=== PATIENT | male | born 1940 | race Caucasian/White ===

== ENCOUNTER 2019-11-12 16:40 | Inpatient (IN) | payer MEDICARE ==
[~2019-11-12] VITALS: Ht 180.3 cm; Wt 84.3 kg
[2019-11-12] VITALS: BP 136/75
--- NOTE | ~2019-11-12 | PROC ---
[address] [address] PROCEDURE REPORT Name: HARRIS DUQUE Room: [address] ADM IN M.R.#: [id number] Admission: 11/12/19 Attend Phys: Elizabeth us los [place] Discharge: Date of : 38 Report #: [id number] THIS REPORT FOR: //name// cc: Ruel Mckenna MD, Justin MD ~ THIS REPORT FOR: //name// For GI report, please see the Provation report in Perceptive 7 content. By: [id number] Records Staff THEO /ANA LUISA
[2019-11-12 16:46] VITALS: BP 125/57
[2019-11-12] MEDS ORDERED: MELOXICAM15 MG PO (16:57)
[2019-11-12] MEDS ORDERED: FLEXERIL PO (16:58)
[2019-11-12] MEDS ORDERED: TRAMADOL 50 MG50 MG PO (16:58)
[2019-11-12] MEDS ORDERED: PROSCAR 5MG TABL5 MG PO (16:59)
[2019-11-12 17:19] LABS: MCH 32.6 pg (26.0-34.0); MCHC 36.8 g/dL (28.0-37.0); MCV 88.6 fL (80.0-100.0); NUCLEATED RBCS 4 /100WBC; RBC 2.12 mil/uL (4.50-6.00); RDW-CV 14.5 % (10.5-14.5); WBC 8.3 thou/uL (4.0-11.0)
[2019-11-12 17:29] LABS: APTT 25.2 Seconds (25.0-31.3); CALCIUM 8.3 mg/dL (8.5-10.1); CREATININE 1.4 mg/dL (0.6-1.3); INR 1.1; POTASSIUM 4.5 mmol/L (3.5-5.1); PROTIME 11.3 Seconds (9.20-11.50)
[2019-11-12 17:32] LABS: HEMATOCRIT 18.8 % (42.0-52.0); HEMOGLOBIN 6.9 gm/dL (14.0-18.0)
[2019-11-12 17:40] LABS: ALBUMIN 3.3 g/dL (3.4-5.0); TOTAL BILIRUBIN 1.7 mg/dL (<0.1-1.0); TOTAL PROTEIN 6.9 g/dL (6.4-8.2)
[2019-11-12 19:12] LABS: ABSOLUTE EOSINOPHILS 0.1 thou/uL (0.0-0.7); ABSOLUTE LYMPHOCYTES 2.3 thou/uL (0.8-5.3); ABSOLUTE MONOCYTES 0.4 thou/uL (0.0-1.2); PLATELET COUNT* 45 thou/uL (150-400); PLATELET ESTIMATE DECREASED
[2019-11-12 19:13] LABS: ABSOLUTE NEUTROPHILS 5.5 thou/uL (1.6-8.1); ANISOCYTOSIS 2+; METAMYELOCYTES 3 %; MYELOCYTES 3 %
[2019-11-12 21:21] VITALS: BP 136/65
[2019-11-12 21:40] VITALS: BP 108/52
[2019-11-12 21:43] LABS: MAGNESIUM 2.4 mg/dL (1.8-2.4)
[2019-11-12 22:51] VITALS: BP 105/50; BP 108/50; BP 108/52; BP 112/58
[2019-11-13 03:00] VITALS: BP 112/58
[2019-11-13 04:12] LABS: HEMOGLOBIN 7.9 gm/dL (14.0-18.0); MCH 32.7 pg (26.0-34.0); WBC 6.5 thou/uL (4.0-11.0)
[2019-11-13 04:14] LABS: HEMATOCRIT 21.4 % (42.0-52.0); MCHC 36.9 g/dL (28.0-37.0); MCV 88.5 fL (80.0-100.0); MPV 7.7 fl. (7.2-11.1); RBC 2.42 mil/uL (4.50-6.00); RDW-CV 14.6 % (10.5-14.5)
[2019-11-13 04:34] LABS: ALBUMIN 2.7 g/dL (3.4-5.0); CALCIUM 7.8 mg/dL (8.5-10.1); POTASSIUM 4.1 mmol/L (3.5-5.1); TOTAL BILIRUBIN 1.6 mg/dL (<0.1-1.0)
[2019-11-13 08:00] VITALS: BP 117/60
--- NOTE | 2019-11-13 09:15 | NUR ---
PT[place] AT [place]. SHE WAS ABLE TO TALK WITH DR.DE JOSE MANUEL ALLEN. HE NORMALLY IS INDEPENDENT. USES A CANE AT TIMES. WAS TILLING THEIR LG.GARDEN SEVERAL WEEKS AGO. BEGAN HAVING N/V AND ABDOMINAL PAIN. UNABLE TO FIND CAUSE. SHE REQUESTED HE BE ADMITTED TO [facility] THEY HAVE BEEN HERE BEFORE AND IT IS MUCH BETTER THAN THEIR [facility] ([facility] PT.CONFUSED AT PRESENT. CM WILL FOLLOW FOR DISCHARGE PLANNING.
[2019-11-13 11:30] VITALS: BP 125/50
--- NOTE | 2019-11-13 13:22 | EKG ---
[place] [address] ELECTROCARDIOGRAM REPORT Name: HARRIS DUQUE Room: [address] IN .R.#: [id number] Admission: 11/12/19 Attend Phys: Elizabeth castro Sa Discharge: Date of : 38 Date of Service: 11/12/19 1718 Report #: [id number] THIS REPORT FOR: //name// [facility] ED Test Date: 2019-11-12 Test Time: 17:18:46 Pat Name: HARRIS DUQUE Department: Room: [facility] Gender: M Fabrication Supervisor: MAHESH : 1940 Requested By: Baljinder Montes Order Number: [id number] MD: Kodak Becerra Measurements Intervals [place] Rate: 91 P: 61 LA: 146 QRS: 56 QRSD: 99 T: 57 QT: 358 QTc: 441 Interpretive Statements Sinus rhythm RSR' in V1 or V2, right VCD No previous ECG available for comparison Electronically Signed On 11-13-2019 13:21:46 CDT by Kodak Becerra [email or web address] <ELECTRONICALLY SIGNED> By: Kodak Becerra MD, [facility] 11/13/19 1321 1718 1718 Kodak Becerra MD, [facility] /EPI
--- NOTE | 2019-11-13 19:30 | NUR ---
PT. AGITATED AND RESTLESS AFTER ATIVAN ADMINISTERED THIS AM. EVENTUALLY, BECAME RESTLESS AND SLEPT FOR SEVERAL HOURS THIS AFTERNOON. UNABLE TO GET MRI DONE ON TWO ATTEMPTS PT. BECAME INCREASINGLY RESTLESS, ACCORDING TO CRUSHER MACHINE OPERATOR. PT. IN BED, RESTLESS, WITH AT BEDSIDE, AT SHIFT CHANGE. ATIVAN 1 MG ADMINISTERED AT 1830, UNABLE TO CHART DUE TO [email or web address] TECH ISSUE. WILL PASS ON TO NS NURSE. PT ON IVF CONTINUOUS, NO COMPLICATIONS. CALL LIGHT AND PERSONAL BELONGIGNS PLACED WITHIN REACH.
[2019-11-13 20:00] VITALS: BP 143/68
[2019-11-13] MEDS ORDERED: OLMESARTAN MEDO20 MG PO (22:42)
[2019-11-14] VITALS: BP 133/75
--- NOTE | 2019-11-14 00:45 | NUR ---
PT ALERT ORIENTED. UP AD DOMONIQUE IN ROOM. NS AT 100MLS/HR STARTED FOR POST HEART CATH. TELEMETRY SHOWS SB RARE PAC. R RADIAL DRSG D/I. DENIES CP OR DISCOMFORT. WCTM
[2019-11-14 02:06] LABS: HEPATITIS B SURFACE AG Negative (Negative)
[2019-11-14 04:00] VITALS: BP 119/50; BP 141/62
[2019-11-14 05:54] LABS: ABSOLUTE LYMPHOCYTES 1.4 thou/uL (0.8-5.3); ABSOLUTE MONOCYTES 0.5 thou/uL (0.0-1.2); ABSOLUTE NEUTROPHILS 4.7 thou/uL (1.6-8.1); BASOPHILS 0.3 %; EOSINOPHILS 0.5 %; HEMATOCRIT 20.3 % (42.0-52.0); HEMOGLOBIN 7.5 gm/dL (14.0-18.0); MCH 32.8 pg (26.0-34.0); MCHC 36.7 g/dL (28.0-37.0); MCV 89.5 fL (80.0-100.0); MONOCYTES 7.1 %; MPV 7.5 fl. (7.2-11.1); NUCLEATED RBCS 3 /100WBC; POLYS 71.1 %; RBC 2.27 mil/uL (4.50-6.00); RDW-CV 14.4 % (10.5-14.5); WBC 6.6 thou/uL (4.0-11.0)
[2019-11-14 06:04] LABS: INR 1.1; PLATELET COUNT* 35 thou/uL (150-400); PROTIME 11.4 Seconds (9.20-11.50)
[2019-11-14 06:12] LABS: ALBUMIN 2.7 g/dL (3.4-5.0); CALCIUM 7.9 mg/dL (8.5-10.1); CREATININE 0.7 mg/dL (0.6-1.3); POTASSIUM 3.5 mmol/L (3.5-5.1); TOTAL BILIRUBIN 1.5 mg/dL (<0.1-1.0); TOTAL PROTEIN 5.9 g/dL (6.4-8.2)
[2019-11-14 08:00] VITALS: BP 138/71
[2019-11-14 12:48] LABS: % SATURATION 68 % (20-39); IRON 141 ug/dL (50-175)
[2019-11-14 15:58] LABS: URINE BILIRUBIN NEGATIVE (Negative); URINE BLOOD NEGATIVE (Negative); URINE CLARITY CLEAR; URINE COLOR DARK YELLOW; URINE GLUCOSE-RANDOM NEGATIVE (Negative); URINE KETONES 1+ (Negative); URINE LEUKOCYTES-REFLEX NEGATIVE (Negative); URINE NITRITE-REFLEX NEGATIVE (Negative); URINE PROTEIN TRACE (Negative); URINE SPECIFIC GRAVITY >= 1.030 (1.005-1.030)
[2019-11-14 16:30] VITALS: BP 139/56
--- NOTE | 2019-11-14 18:34 | NUR ---
PT. VSS, INCREASINGLY ALERT THROUGHOUT THE DAY, ORIENTED TO NAME, DENIES PAIN, IVF INFUSING CONTINUOUS WITHOUT COMPLICATIONS. PT WITH AT BEDSIDE THROUGHOUT SHIFT, ASSISTING WITH CARE. PT. ORIENTED TO CALL LIGHT. PT. IN BED, WITH AT BEDSIDE, IN NO APPARENT DISTRESS, AT THIS TIME.
[2019-11-14 20:00] VITALS: BP 144/69
[2019-11-15] VITALS (7 sets, daily range): BP systolic 131–151; BP diastolic 59–75
--- NOTE | 2019-11-15 04:23 | NUR ---
No acute event this shift. Pt complains of headache, meds given with relief. Pt Aox2- confused, easy to redirect/reorientation done. IVF infusing as ordered. Hourly rounding observed, call light within reach, will continue to monitor.
[2019-11-15 10:42] LABS: RBC 2.15 mil/uL (4.50-6.00)
[2019-11-15 10:45] LABS: MCH 32.9 pg (26.0-34.0); MCHC 36.6 g/dL (28.0-37.0); MPV 8.2 fl. (7.2-11.1); RDW-CV 14.5 % (10.5-14.5); WBC 7.7 thou/uL (4.0-11.0)
[2019-11-15 10:52] LABS: ALBUMIN 2.4 g/dL (3.4-5.0); CALCIUM 7.7 mg/dL (8.5-10.1); CREATININE 0.7 mg/dL (0.6-1.3); MAGNESIUM 1.9 mg/dL (1.8-2.4); POTASSIUM 3.5 mmol/L (3.5-5.1); TOTAL BILIRUBIN 1.3 mg/dL (<0.1-1.0)
[2019-11-15 11:02] LABS: HEMATOCRIT 19.3 % (42.0-52.0)
[2019-11-15 11:03] LABS: HEMOGLOBIN 7.1 gm/dL (14.0-18.0); PLATELET COUNT* 28 thou/uL (150-400)
[2019-11-15 13:59] LABS: ABSOLUTE LYMPHOCYTES 2.4 thou/uL (0.8-5.3); ABSOLUTE MONOCYTES 0.2 thou/uL (0.0-1.2); ABSOLUTE NEUTROPHILS 5.2 thou/uL (1.6-8.1); METAMYELOCYTES 4 %
[2019-11-15 14:00] LABS: PLATELET ESTIMATE DECREASED
[2019-11-15 16:02] LABS: DIRECT BILIRUBIN 0.5 mg/dL (<0.1-0.3); TOTAL BILIRUBIN 1.3 mg/dL (<0.1-1.0)
--- NOTE | 2019-11-15 18:56 | NUR ---
pt. vss, aox1-2, appears confused, denies pain. unit administered, tolerated without complications. spouse at bedside most of shift, assisted with care. pt. turned to side frequently. call light and personal belongings placed within reach. pt. in bed, watching tv, spouse at bedside, in no apparent distress at time of shift change.
[2019-11-15 20:37] LABS: HEMATOCRIT 22.8 % (42.0-52.0); HEMOGLOBIN 8.5 gm/dL (14.0-18.0)
[2019-11-16 04:00] VITALS: BP 137/76
--- NOTE | 2019-11-16 07:42 | NUR ---
PT MORE ALERT AND MINIMAL ANXIETY WITH AT BEDSIDE OBSERVED BY THIS RN. FENTANYL GIVEN PRN FOR PAIN. 11 BEAT RUN OF V-TACH- PRINTED AND PUT IN CHART. RE-ORDERED TYPE AND SCREEN FOR EXPIRATION. CALL LIGHT IN REACH. HOURLY ROUNDING FOR SAFETY.
[2019-11-16 08:00] VITALS: BP 130/60
--- NOTE | 2019-11-16 08:10 | NUR ---
ASSUMED CARE OF PATIENT THIS MORNING FROM NIGHT NURSE. PT IS VERY WEAK. HE WAS EDUCATED ON POC, HER MRI TODAY AND FALL SAFETY. BED IS INT HE LOWEST POSITION AND THE CALL LIGHT IS REACH. BED ALARM IS ON WILL CONTINUE TO MONITOR.
[2019-11-16 08:23] LABS: HEMOGLOBIN 8.1 gm/dL (14.0-18.0); RBC 2.52 mil/uL (4.50-6.00); WBC 8.2 thou/uL (4.0-11.0)
[2019-11-16 08:25] LABS: MCH 32.2 pg (26.0-34.0); MCV 87.1 fL (80.0-100.0); MPV 9.4 fl. (7.2-11.1); RDW-CV 14.3 % (10.5-14.5)
[2019-11-16 08:47] LABS: ALBUMIN 2.3 g/dL (3.4-5.0); CALCIUM 8.1 mg/dL (8.5-10.1); CREATININE 0.6 mg/dL (0.6-1.3); MAGNESIUM 1.9 mg/dL (1.8-2.4); PHOSPHORUS* 3.4 mg/dL (2.5-4.9); POTASSIUM 3.5 mmol/L (3.5-5.1)
[2019-11-16 10:00] LABS: DIRECT BILIRUBIN 0.5 mg/dL (<0.1-0.3); TOTAL BILIRUBIN 1.4 mg/dL (<0.1-1.0)
[2019-11-16 11:04] LABS: HEMATOCRIT 21.8 % (42.0-52.0); HEMOGLOBIN 8.1 gm/dL (14.0-18.0)
[2019-11-16 11:06] LABS: MCH 32.2 pg (26.0-34.0); MCV 87.1 fL (80.0-100.0); MPV 7.7 fl. (7.2-11.1); RBC 2.5 mil/uL (4.50-6.00); RDW-CV 14.3 % (10.5-14.5); WBC 6.7 thou/uL (4.0-11.0)
[2019-11-16 11:30] LABS: DIRECT BILIRUBIN 0.4 mg/dL (<0.1-0.3); TOTAL BILIRUBIN 1.3 mg/dL (<0.1-1.0)
[2019-11-16 11:51] VITALS: BP 127/66
[2019-11-16 14:58] LABS: HEMATOCRIT 23.5 % (42.0-52.0); HEMOGLOBIN 8.5 gm/dL (14.0-18.0); MCH 32.4 pg (26.0-34.0); MCHC 36.2 g/dL (28.0-37.0); MCV 89.5 fL (80.0-100.0); MPV 7.3 fl. (7.2-11.1); NUCLEATED RBCS 2 /100WBC; RBC 2.62 mil/uL (4.50-6.00); RDW-CV 14.4 % (10.5-14.5); WBC 7.9 thou/uL (4.0-11.0)
[2019-11-16 15:10] LABS: PLATELET COUNT* 18 thou/uL (150-400)
[2019-11-16 15:33] LABS: ABSOLUTE EOSINOPHILS 0.1 thou/uL (0.0-0.7); ABSOLUTE LYMPHOCYTES 1.7 thou/uL (0.8-5.3); ABSOLUTE MONOCYTES 0.2 thou/uL (0.0-1.2)
[2019-11-16 15:34] LABS: PLATELET ESTIMATE DECREASED; POLYCHROMASIA 1+; SCHISTOCYTES Occasional
[2019-11-16 15:35] LABS: TEARDROPS 1+
--- NOTE | 2019-11-16 16:21 | NUR ---
SW called pt to discuss dc planning. Pending therapy evaluations and recommendations and pt also said possibly other tests. Therapy just ordered today. SW discussed options for SNF if needed and pt to call SW back with preferences in preparation for when pt is ready to dc. SW to continue to follow to assist with safe dc planning.
[2019-11-16 16:41] VITALS: BP 146/74
--- NOTE | 2019-11-16 19:19 | CON ---
[address] [address] CONSULTATION Name: HARRIS DUQUE Room: [address] IN M.R.#: [id number] Admission: 11/12/19 Attend Phys: Elizabeth Saini Discharge: Date of : 38 Report #: [id number] THIS REPORT FOR: //name// cc: Ruel Mckenna MD, Justin MD ~ THIS REPORT FOR: //name// CC: Elizabeth Carter DICTATED BY: Cecelia Rodriguez [facility] DATE OF SERVICE: 11/13/2019 Please note at the time of this dictation, the patient was seen and physically examined by myself. REASON FOR CONSULTATION: Acute anemia, possible GI bleed, nausea and vomiting. HISTORY OF PRESENT ILLNESS: This is an 79-year-old man who has a longstanding history of alcohol abuse for 50-plus years up until 5 weeks ago, he was drinking 5-8 beers daily regularly. All of the history was obtained from his for the patient had been sedated for imaging. informs me that about 6 weeks ago, he threw his back out while he was tilling in the yard. He was given Mobic at that time and steroids and some Flexeril. He was doing physical therapy. During this time approximately a couple of weeks ago with all of this, he became very constipated. He tried some magnesium citrate to help with that, which did not work for another 8-10 hours then he started having profound diarrhea as well as he had projectile vomitus that was all bile in nature per his . She did not see any bright red blood or any coffee-ground emesis with that. He has continued to have a little bit of nausea and he then proceeded after his bowel movement to that he noticed some bright red blood on his tissue that is when he stopped taking the Mobic at that time. The patient was getting worse and then was transferred from [facility] for further evaluation due to his acute anemia at this time. The patient has never had EGD or colonoscopy done before. states normally his bowels are regular except for here recently. He had severe constipation about 2 weeks ago. Did the mag citrate along with some other laxatives, started going and then he has been on MiraLax daily, which has helped him go every day. He has not had any MiraLax the last 2 days, so therefore, he has not really had anything. It is noted that approximately 2 weeks ago, his hemoglobin was 14 per his PCP and he is down to 6.9 on admission. ALLERGIES: [place] [address] CONSULTATION Name: HARRIS DUQUE Room: [address] IN M.R.#: [id number] Admission: 11/12/19 Attend Phys: Elizabeth Saini Discharge: Date of : 38 Report #: [id number] MEDICATIONS FROM HOME: Mobic up until recently, Ultram, Flexeril and Proscar. PAST MEDICAL HISTORY: Hypertension and recently with his back issue. PAST SURGICAL HISTORY: Appendectomy and a left knee surgery. FAMILY HISTORY: Mother, pancreatic cancer. Sister, ovarian cancer. SOCIAL HISTORY: He is . Alcohol use daily, 5-8 beers up until 5 weeks ago and is a nonsmoker and denies any recreational drug use. REVIEW OF SYSTEMS: Twelve-point review of systems is essentially negative except what is mentioned in the HPI. PHYSICAL EXAMINATION: VITAL SIGNS: Temperature 37.1, pulse 87, respirations 17, blood pressure 125/50. HEART: Regular rate and rhythm. LUNGS: Clear. ABDOMEN: Very protuberant with a midline incision noted from the umbilicus down, but no tenderness noted. LABORATORY DATA: Hemoglobin on admission was 6.9, he got a unit of blood, he is up to 7.9; white count is 6.5 with platelets of 41,000. BUN is 26, creatinine is 1 with a GFR of 72. Total bilirubin is 1.7, alkaline phosphatase is 741, ALT is 75, AST is 104. Ultrasound showed a likely 1.2 cm hemangioma type mass in the liver. Also, sludge and debris were noted as well, but the gallbladder is normal size and thickness. Sludge and debris were noted within the gallbladder. The common bile duct was 5.2 mm. Unable to see the pancreas at this time. CT scan done on admission, confirming that he has got a cyst in the right hepatic lobe. Gallbladder, spleen, pancreas and adrenals are all normal. He does have a low-attenuating lesion on the right renal pole. It is noted a 6 cm segment of circumferential rectal wall thickening that is noted. IMPRESSION: 1. Nausea and vomiting. 2. Abdominal pain. 3. Rectal bleeding. 4. Abnormal CT. 5. Acute anemia. 6. Thrombocytopenia. 7. Elevated liver function tests. 8. Nonsteroidal anti-inflammatory drug use recently. 9. Hyponatremia. 10. Family history of pancreatic and ovarian cancer in mother and sister. 11. Alcohol abuse up until 5 weeks ago 5-8 beers daily for the last 50 [place] [address] CONSULTATION Name: HARRIS DUQUE Room: [address] IN [facility]#: [id number] Admission: 11/12/19 Attend Phys: Elizabeth us los [place] Discharge: Date of : 38 Report #: [id number] PLAN: 1. EGD, possible ERCP. 2. Alkaline phosphatase. 3. MRI is still pending. 4. Further recommendations to be made once the procedure or procedures have been performed. Thank you for allowing us to participate in this patient's care. Please do not hesitate to call with any questions in regard to this consult ADDENDUM Likely the patient will need a colonoscopy due to his abnormal rectal wall thickening while he is here in the hospital as well. <ELECTRONICALLY SIGNED> By: Nick Nye DO 11/16/19 1919 1252 1325Nick Nye DO /nt
[2019-11-16 20:00] VITALS: BP 109/71
[2019-11-17] VITALS: BP 141/73
[2019-11-17 04:51] LABS: HEMATOCRIT 22.2 % (42.0-52.0); HEMOGLOBIN 8.3 gm/dL (14.0-18.0); MCH 32.6 pg (26.0-34.0); MCHC 37.4 g/dL (28.0-37.0); MCV 87.3 fL (80.0-100.0); MPV 10.9 fl. (7.2-11.1); RBC 2.55 mil/uL (4.50-6.00); RDW-CV 14.3 % (10.5-14.5); WBC 9.6 thou/uL (4.0-11.0)
[2019-11-17 05:26] LABS: ALBUMIN 2.4 g/dL (3.4-5.0); CALCIUM 8.3 mg/dL (8.5-10.1); CREATININE 0.8 mg/dL (0.6-1.3); MAGNESIUM 2.2 mg/dL (1.8-2.4); POTASSIUM 3.7 mmol/L (3.5-5.1); TOTAL BILIRUBIN 1.1 mg/dL (<0.1-1.0); TOTAL PROTEIN 5.8 g/dL (6.4-8.2)
--- NOTE | 2019-11-17 06:51 | NUR ---
PT ORIENTED TO SELF AND . PT RESTLESS OFF AND ON. PAIN MEDICATION GIVEN PRN. @ BEDSIDE. PEDIATRIC ONCOLOGIST IM AND HEMO/OC PAGED FOR PLATELET RESULTS. PT'S STATED SHE WANTED TO TAKE HER HOME AND "NOT PUT HIM IN A FACILITY" AND ALSO REPORTED HER "INSURANCE WILL COVER HOME HEALTH." ENCOURAGED HER TO SPEAK WITH SOCIAL WORK AND DOCTOR.
[2019-11-17 08:00] VITALS: BP 148/64
--- NOTE | 2019-11-17 08:00 | NUR ---
ASSUMED CARE OF PATIENT THIS MORNING FROM NIGHT NURSE. PT IS DOING WELL, WITH MILD CO OF PAIN WELL CONTROLLED WITH PAIN MEDICATIONS. HE AND HIS WERE EDUCATED ON POC AND FALL SAFETY. BED IN LOWEST POSITION AND CALL LIGHT IN REACH, BED ALARM IS ON. WILL CONTINUE TO MONITOR.
[2019-11-17 10:52] VITALS: BP 130/80; BP 138/76; BP 144/80; BP 152/83
--- NOTE | 2019-11-17 11:33 | NUR ---
SW continuing to follow to assist with safe dc planning. Pt not ready yet and might need ICU. Pt called SW back and explained that they will not agree to SNF and would have ample support to assist at home and they would need DME ordered if more DME recommended at dc. Pt hopeful for OP PT if possible but was open to HH if needed.
[2019-11-17 12:00] VITALS: BP 151/82
[2019-11-17 15:55] VITALS: BP 151/82
[2019-11-17 20:00] VITALS: BP 111/71
[2019-11-17 22:33] LABS: HEMATOCRIT 21.4 % (42.0-52.0); HEMOGLOBIN 7.8 gm/dL (14.0-18.0); MCH 32.1 pg (26.0-34.0); MCHC 36.5 g/dL (28.0-37.0); MCV 87.8 fL (80.0-100.0); MPV 7.2 fl. (7.2-11.1); RBC 2.44 mil/uL (4.50-6.00); RDW-CV 14.4 % (10.5-14.5); WBC 11.6 thou/uL (4.0-11.0)
[2019-11-18] VITALS: BP 157/83; BP 167/80
[2019-11-18 07:38] LABS: ABSOLUTE BASOPHILS 0.1 thou/uL (0.0-0.2); ABSOLUTE LYMPHOCYTES 1.8 thou/uL (0.8-5.3); ABSOLUTE MONOCYTES 0.7 thou/uL (0.0-1.2); ABSOLUTE NEUTROPHILS 7.1 thou/uL (1.6-8.1); BASOPHILS 0.6 %; HEMATOCRIT 20.2 % (42.0-52.0); HEMOGLOBIN 7.5 gm/dL (14.0-18.0); LYMPHOCYTES 18.4 %; MCH 32.4 pg (26.0-34.0); MCV 87.6 fL (80.0-100.0); MONOCYTES 7.1 %; MPV 7.8 fl. (7.2-11.1); NUCLEATED RBCS 2 /100WBC; POLYS 73.9 %; RBC 2.31 mil/uL (4.50-6.00); RDW-CV 14.7 % (10.5-14.5); WBC 9.7 thou/uL (4.0-11.0)
[2019-11-18 07:40] LABS: PLATELET COUNT* 41 thou/uL (150-400)
[2019-11-18 07:49] LABS: PROTIME 10.7 Seconds (9.20-11.50)
[2019-11-18 07:54] LABS: CALCIUM 8.2 mg/dL (8.5-10.1); CREATININE 0.8 mg/dL (0.6-1.3); MAGNESIUM 2.1 mg/dL (1.8-2.4); POTASSIUM 3.5 mmol/L (3.5-5.1); TOTAL BILIRUBIN 1.2 mg/dL (<0.1-1.0); TOTAL PROTEIN 5.9 g/dL (6.4-8.2)
--- NOTE | 2019-11-18 07:55 | NUR ---
PT MORE ALERT THIS SHIFT THAN OBSERVED BY THIS RN ON PRIOR NIGHT SHIFTS INCLUDING ADMISSION. SHORT TERM MEMORY ALSO APPEARS TO HAVE IMPROVED. COMMUNITY BLOOD BANK NURSE HAD DIFFICULTY GETTING WORKING EQUIPMENT FOR PLASMAPHORESIS. DR RODRIGEZ NOTIFIED LAST NIGHT. ORDERED STAT LABS AND BLOOD BANK NURSE CONTINUED TO WORK ON ARRANGING FOR TRANSPORT OF WORKING EQUIPMENT. THE 3RD MACHINE DELIVERED WAS FUNCTIONING PROPERLY AND ABLE TO START PLASMAPHORESIS APPROX 0330. VITALS AND INFUSION CHARTED ON PAPER COPIES FOR 13 UNITS OF PLASMA. 11 ML FLUID EXCESS REPORTED BY BLOOD BACK RN AT END OF PROCEEDURE. PT TOLERATED WELL. ALSO OBTAINED PERMISSION FOR VISIT FROM PT'S PARCEL WRAPPER LAST NIGHT. PT WAS GIVEN FENTANYL X1. ANSWERED QUESTIONS ABOUT PT'S TREATMENT FOR . FREQUENT MONITORING. REPORT GIVEN TO DAY RN.
[2019-11-18 08:00] VITALS: BP 155/80
[2019-11-18 12:18] VITALS: BP 140/66
--- NOTE | 2019-11-18 12:26 | NUR ---
Nutrition: seen d/t LOS. Pt reported appetite is not good. No intake records. Pt family reported he was not eating well METAL EXPEDITER either. However, pt denied wt loss from [facility] 180 lb. Prealbumin 20.0, CO2 36, AST 66, alk phos 312. Prednisone and other meds reivewed. Pt also c/o diarrhea d/t a medication. Agreed to try Ensure. Low-mild nutrition risk.
[2019-11-18 13:54] VITALS: BP 136/69; BP 138/72; BP 142/77
[2019-11-18 17:04] LABS: HEMOGLOBIN 9.4 gm/dL (14.0-18.0)
--- NOTE | 2019-11-18 18:49 | NUR ---
RECIEVED REPORT ON PATIENT AROUND 729. ASSUMED CARE OF PATIENT. VS AND ASSESSMENT CHARTED. MEDICATION PER JUL. PATIENT HOOKED UP TO HEART MONITOR. HOURLY ROUNDING PERFORMED. PATIENT HAD CRITICAL LAB VALUE OF PLTS. DR WAS NOTIFIED. BLOOD TRANSFUSION GIVEN AT 1411. NO REACTIONS. VS CHARTED. H&H DRAWN. RESULTS WITHIN PARAMETER. RECIEVED [id number] RESULTS, NOTIFIED DR. HO. DR ORDERED TO NOT GIVE PLASMAPHORESIS ANYMORE. MIDLINE PLACED IN RIGHT UPPER ARM. BEDSIDE TABLE AND CALL LIGHT WITH IN REACH. AT BEDSIDE.
[2019-11-18 20:10] VITALS: BP 138/62
[2019-11-18 21:07] LABS: IgA 149 mg/dL (61-437); IgG 787 mg/dL (603-1613); IgM 73 mg/dL (15-143)
[2019-11-19] VITALS (7 sets, daily range): BP systolic 126–158; BP diastolic 69–87
[2019-11-19 04:50] LABS: ABSOLUTE BASOPHILS 0.1 thou/uL (0.0-0.2); ABSOLUTE LYMPHOCYTES 2.7 thou/uL (0.8-5.3); ABSOLUTE MONOCYTES 0.6 thou/uL (0.0-1.2); ABSOLUTE NEUTROPHILS 9.3 thou/uL (1.6-8.1); BASOPHILS 0.4 %; EOSINOPHILS 0.1 %; HEMATOCRIT 26.3 % (42.0-52.0); HEMOGLOBIN 9.5 gm/dL (14.0-18.0); LYMPHOCYTES 21.2 %; MCH 31.5 pg (26.0-34.0); MCHC 36.1 g/dL (28.0-37.0); MCV 87.2 fL (80.0-100.0); MPV 7.6 fl. (7.2-11.1); NUCLEATED RBCS 2 /100WBC; POLYS 73.3 %; RBC 3.02 mil/uL (4.50-6.00); RDW-CV 14.6 % (10.5-14.5); WBC 12.7 thou/uL (4.0-11.0)
[2019-11-19 05:04] LABS: PLATELET COUNT* 31 thou/uL (150-400)
--- NOTE | 2019-11-19 05:09 | NUR ---
PT SLEPT ON AND OFF THIS SHIFT. ASSESSMENT DOCUMENTED. MEDS GIVEN PER E-MAR. IV'S PATENT. REMAINED AT BEDSIDE. PAIN MEDS GIVEN PER E-MAR WITH SOME RELIEF. PT REPOSITIONED THOUGH NIGHT. WILL CONTINUE WITH PLAN OF CARE.
[2019-11-19 05:16] LABS: ALBUMIN 3.2 g/dL (3.4-5.0); CALCIUM 8.2 mg/dL (8.5-10.1); CREATININE 0.8 mg/dL (0.6-1.3); POTASSIUM 3.6 mmol/L (3.5-5.1); TOTAL BILIRUBIN 1.2 mg/dL (<0.1-1.0); TOTAL PROTEIN 6.1 g/dL (6.4-8.2)
--- NOTE | 2019-11-19 11:48 | NUR ---
SW continuing to follow to assist with safe dc planning wheneve pt is medically ready to dc. Pt family hopeful to be able to provide enough care and assistance in the home vs SNF. SW to follow for arranging for DME needs and OP vs HH.
[2019-11-19 14:07] LABS: HEMOGLOBIN 8.2 g/dL (13.0-17.7)
--- NOTE | 2019-11-19 14:48 | IN ---
[address] [address] INTERIM NOTE Name: HARRIS DUQUE Room: [address] IN .R.#: [id number] Admission: 11/12/19 Attend Phys: Elizabeth Saini Discharge: Date of : 38 Report #: [id number] THIS REPORT FOR: //name// cc: Ruel Mckenna MD, Justin MD ~ CC: Elizabeth Sherman DATE OF SERVICE: 11/17/2019 SUBJECTIVE: The patient is awake, but somewhat confused, not able to give me good history. He states he is doing better. He does not have back pain at this point. OBJECTIVE: VITAL SIGNS: Afebrile. HEART: Normal S1, S2. LUNGS: Clear. ABDOMEN: Soft. LABORATORY DATA: Hemoglobin 8.2, platelets 13. ASSESSMENT AND PLAN: 1. Thrombocytopenia, persistent, not responding to steroids. We will initiate plasmapheresis while waiting for [id number] test result. The patient was given 1 unit of platelets over 4 hours. He tolerated this well. ____ will be placed. We will start plasmapheresis today. 2. We will continue prednisone 60 mg p.o. daily. <ELECTRONICALLY SIGNED> By: Jake Denise MD 11/19/19 1448 2250 MD penelope Torres
--- NOTE | 2019-11-19 14:48 | IN ---
[address] [address] INTERIM NOTE Name: HARRIS DUQUE Room: [address] IN M.R.#: [id number] Admission: 11/12/19 Attend Phys: Elizabeth Saini Discharge: Date of : 38 Report #: [id number] THIS REPORT FOR: //name// cc: Ruel Mckenna MD, Justin MD ~ CC: Elizabeth Sherman DATE OF SERVICE: 11/16/2019 SUBJECTIVE: Confused, still has complaints of back pain. OBJECTIVE: VITAL SIGNS: Blood pressure 146/74, heart rate is 95, and temperature 97.6. HEART: Normal S1, S2. LUNGS: Clear. ABDOMEN: Soft and nontender. MENTAL STATUS: Confused, awake, but not able to give me history. History is obtained from the . LABORATORY DATA: White count 7.9, hemoglobin 8.5, platelets 80,000, and MCV 89.5. Sodium 127, potassium 3.5. LDH 1036. Total bilirubin 1.3 and direct bilirubin 0.4. ASSESSMENT AND PLAN: Thrombocytopenia of unclear etiology. Peripheral smear has been reviewed. There are no schistocytes. TTP is in the differential, but unlikely. Peripheral smear was reviewed today by Dr. Hansen. I discussed this with Dr. Hansen, he does not see any schistocytes on the peripheral smear. There are rare spherocytes only. I discussed this case with the patient's . ____ test is pending. At this point, platelets are getting better. We will continue steroids and continue close monitoring of condition. If platelets will not respond to steroids, we will consider plasmapheresis later. At this point, plasmapheresis was discussed with . is interested in plasmapheresis, but wants to delay for now. Anemia. He has signs of hemolysis. Jessica test is negative. I am not sure if he has autoimmune hemolytic anemia, possibly antibody titer could be quite low. Hopefully, he will respond to steroids. Continue prednisone 60 mg p.o. daily for now. We will check CBC and [place] [address] INTERIM NOTE Name: HARRIS DUQUE Room: [address] IN [facility].#: [id number] Admission: 11/12/19 Attend Phys: Elizabeth castro [place] Discharge: Date of : 38 Report #: [id number] I spent more than 25 minutes on this patient. <ELECTRONICALLY SIGNED> By: Jake Denise MD 11/19/19 1448 1700 1940Jake Denise MD /nt
[2019-11-19 15:08] LABS: ANA INTERPRETATION Negative (Negative)
--- NOTE | 2019-11-19 16:05 | NUR ---
PATINET RESTING IN BED. UP TO CHAIR WITH ASSIST X2. AOX4 BUT FORGETFUL. NO PLASMAPHERESIS TODAY. HOURLY ROUNDING COPMPLETD FOR PATINET SAFETY. AFIB WITH RATES OF 90-110 TODAY.
[2019-11-20 04:00] VITALS: BP 146/75
--- NOTE | 2019-11-20 04:33 | NUR ---
Pt AOX3, up with minimal assist. Sinus rhythm/tach on tele. Pt complains of back and abdominal pain. Meds given per mar with partial relief. Pt hard time getting settle. Pt sleep around 3-4 hours. Pt spouse at bedside. Pt continent, had BM today/uses bedside commode. Hourly rounding observed. Pt used call light appropriately. Will continue to monitor.
[2019-11-20 08:00] VITALS: BP 146/65
--- NOTE | 2019-11-20 09:32 | NUR ---
ASSUMED CARE OF PT AT 0730. PT RESTING IN BED WAITING FOR BREAKFAST. AT BEDSIDE AND UPDATED ON CURRENT PLAN OF CARE. PT A&0X3-4, FORGETFUL AT TIMES. TRACING SR ON THE LIME TRIMMER. OCCASIONALLY ST WHEN UP TO BSC. ASYMPTOMATIC. ON RA SAT UPPER 90'S. PT DENIES ANY PAIN OR SHORTNESS OF BREATH AT THIS TIME. PT UP WITH SBA TO BSC. VOIDS PER URINAL. HEMOC AND GI CONSULT IN PLACE. PT GOAL FOR TODAY IS INCREASE ACTIVITY, MONITOR LABS AND IV ANTIBIOTICS/PROTONIX. AM ASSESSMENT CHARTED. MEDICATIONS PER MAR. PT REPOSITIONS SELF WITH REMINDERS. HOURLY ROUNDING OBSERVED. BED IN LOW POSITION. CALL LIGHT WITHIN REACH. FALL PRECAUTIONS IN PLACE. WILL CONTINUE PLAN OF CARE.
[2019-11-20 11:43] LABS: HEMATOCRIT 22.8 % (42.0-52.0)
[2019-11-20 11:44] LABS: HEMOGLOBIN 8.3 gm/dL (14.0-18.0); MCH 31.4 pg (26.0-34.0); MCHC 36.3 g/dL (28.0-37.0); MCV 86.3 fL (80.0-100.0); MPV 7.8 fl. (7.2-11.1); NUCLEATED RBCS 4 /100WBC; RBC 2.65 mil/uL (4.50-6.00); RDW-CV 14.6 % (10.5-14.5); WBC 11.8 thou/uL (4.0-11.0)
[2019-11-20 11:47] LABS: PLATELET COUNT* 18 thou/uL (150-400)
[2019-11-20 11:48] LABS: CALCIUM 8.2 mg/dL (8.5-10.1); CREATININE 0.8 mg/dL (0.6-1.3); POTASSIUM 3.7 mmol/L (3.5-5.1)
[2019-11-20 11:53] LABS: ALBUMIN 2.8 g/dL (3.4-5.0); TOTAL PROTEIN 5.6 g/dL (6.4-8.2)
[2019-11-20 12:16] VITALS: BP 136/62
[2019-11-20 12:51] LABS: ABSOLUTE LYMPHOCYTES 1.8 thou/uL (0.8-5.3); ATYPICAL LYMPHS 5 %; METAMYELOCYTES 12 %; PLATELET ESTIMATE DECREASED
[2019-11-20 12:52] LABS: POLYCHROMASIA 1+; SCHISTOCYTES 1+
[2019-11-20 12:53] LABS: ANISOCYTOSIS 2+
[2019-11-20 13:03] LABS: DIRECT BILIRUBIN 7.7 mg/dL (<0.1-0.3); TOTAL BILIRUBIN 10.1 mg/dL (<0.1-1.0)
--- NOTE | 2019-11-20 13:53 | NUR ---
SW initiated transfer to as requested. triage nurse said that was at capacity and had been closed last couple of days to transfers but that we could try but there was no promise. [facility] called back again and asked them to call Dr Denise to discuss the transfer. [facility] will fax information to transfer team and continue to follow for assistance with dc/transfer. transfer team nurse direct line [phone] fax [phone]
[2019-11-20 16:11] VITALS: BP 142/79
--- NOTE | 2019-11-20 18:42 | NUR ---
NO ACUTE CHANGES THROUGHOUT SHIFT. REFER TO CHARTING. PT REMAINS AT BEDSIDE. AWAITING [facility] BLOOD BELLE GLADE ARRIVAL FOR PLASMAPHERESIS. PER DR CORETS AND DR NEWMAN- NOT TO TRANSFUSE PLATELETS WITHOUT TALKING TO HEMATOLOGY FIRST. PT HAD US ABDOMEN-REFER TO RESULTS. MEDS PER JUL. PT REPOSITIONED EVERY 2 HOURS FOR COMFORT. HOURLY ROUNDING OBSERVED. BED IN LOW POSITION. BED ALARM IN PLACE. FALL PRECAUTIONS IN PLACE. CALL LIGHT WITHIN REACH. WILL CONTINUE PLAN OF CARE.
[2019-11-20 20:00] VITALS: BP 130/77
[2019-11-21 00:25] VITALS: BP 128/70
[2019-11-21 04:30] VITALS: BP 131/62
[2019-11-21 05:21] LABS: MPV 8.1 fl. (7.2-11.1); WBC 9.3 thou/uL (4.0-11.0)
[2019-11-21 05:24] LABS: HEMATOCRIT 21.3 % (42.0-52.0); HEMOGLOBIN 7.8 gm/dL (14.0-18.0); MCH 31.8 pg (26.0-34.0); MCHC 36.8 g/dL (28.0-37.0); MCV 86.5 fL (80.0-100.0); RBC 2.46 mil/uL (4.50-6.00); RDW-CV 14.8 % (10.5-14.5)
[2019-11-21 05:45] LABS: DIRECT BILIRUBIN 2.2 mg/dL (<0.1-0.3); TOTAL BILIRUBIN 3.9 mg/dL (<0.1-1.0)
--- NOTE | 2019-11-21 06:10 | NUR ---
AWAKE FREQ DURING NIGHT. RESTLESS BUT COOPERATIVE. HAVING CONSTANT BACK PAIN. TOLERATED PLASMAPHERESIS WITHOUT INCIDENT. AM LAB SHOWING PLT 19 THIS AM. NO CHANGE IN ASSESSMENT. TELEMETRY SHOWING SR WITH PAC AND PVC. HS GOALS OF REST AND SAFETY ACHIEVED. HOURLY ROUNDING OBSERVED.
[2019-11-21 08:00] VITALS: BP 127/74
--- NOTE | 2019-11-21 08:05 | NUR ---
ASSUMED CARE OF PATIENT THIS MORNING FROM NIGHT NURSE. PT IS DOING WELL WITH NO CO FO PAIN OR NAUSEA. HE IS WEAK AND WAS EDUCATED ON POC AND FALL SAFETY. HIS BED IS IN THE LOWEST POSITION AND HIS CALL LIGHT IN REACH. BED ALARM IS ON, WILL CONTINUE TO MONITOR.
[2019-11-21 08:18] LABS: CALCIUM 7.9 mg/dL (8.5-10.1); CREATININE 0.8 mg/dL (0.6-1.3); POTASSIUM 3.5 mmol/L (3.5-5.1)
[2019-11-21 08:23] LABS: ALBUMIN 2.9 g/dL (3.4-5.0); TOTAL BILIRUBIN 3.7 mg/dL (<0.1-1.0); TOTAL PROTEIN 5.3 g/dL (6.4-8.2)
[2019-11-21 12:00] VITALS: BP 123/51
[2019-11-21 16:00] VITALS: BP 119/65
[2019-11-21 18:05] LABS: ABSOLUTE LYMPHOCYTES 1.4 thou/uL (0.8-5.3); ABSOLUTE MONOCYTES 0.3 thou/uL (0.0-1.2); ABSOLUTE NEUTROPHILS 8.5 thou/uL (1.6-8.1); BASOPHILS 0.5 %; EOSINOPHILS 0.1 %; HEMATOCRIT 20.8 % (42.0-52.0); HEMOGLOBIN 7.5 gm/dL (14.0-18.0); LYMPHOCYTES 13.2 %; MCH 31.9 pg (26.0-34.0); MCHC 36.2 g/dL (28.0-37.0); MCV 88.1 fL (80.0-100.0); MONOCYTES 3.1 %; MPV 7.5 fl. (7.2-11.1); NUCLEATED RBCS 2 /100WBC; POLYS 83.1 %; RBC 2.36 mil/uL (4.50-6.00); WBC 10.3 thou/uL (4.0-11.0)
[2019-11-21 18:12] LABS: PLATELET COUNT* 20 thou/uL (150-400)
[2019-11-21 18:34] LABS: ALBUMIN 2.8 g/dL (3.4-5.0); CREATININE 0.8 mg/dL (0.6-1.3); POTASSIUM 3.8 mmol/L (3.5-5.1); TOTAL BILIRUBIN 1.7 mg/dL (<0.1-1.0); TOTAL PROTEIN 5.9 g/dL (6.4-8.2)
[2019-11-21 19:50] VITALS: BP 140/87
[2019-11-22] VITALS (7 sets, daily range): BP systolic 109–136; BP diastolic 57–82
--- NOTE | 2019-11-22 04:12 | NUR ---
ASSUMED CARE OF PT AT 1900. PT IS ALERT AND ORIENTED. VSS. PERRLA. PT IS UP WITH 1 ASSIST. PT IS IN SINUS RYTHM ON THE TELEMETRY. PT HEART RATE GOES UP INTO THE UPPER 100S WITH EXERTION. PT IS SLEEPING COMFORTABLY IN BED. RESPIRATIONS ARE EVEN AND NONLABORED. WILL CONTINUE TO MONITOR PT.
[2019-11-22 06:26] LABS: ABSOLUTE MONOCYTES 0.4 thou/uL (0.0-1.2); ABSOLUTE NEUTROPHILS 7.2 thou/uL (1.6-8.1); BASOPHILS 0.5 %; EOSINOPHILS 0.1 %; HEMOGLOBIN 7.1 gm/dL (14.0-18.0); LYMPHOCYTES 20.7 %; MCH 31.7 pg (26.0-34.0); MCHC 35.8 g/dL (28.0-37.0); MCV 88.6 fL (80.0-100.0); MONOCYTES 4.3 %; MPV 8.3 fl. (7.2-11.1); NUCLEATED RBCS 2 /100WBC; POLYS 74.4 %; RBC 2.24 mil/uL (4.50-6.00); RDW-CV 14.7 % (10.5-14.5); WBC 9.7 thou/uL (4.0-11.0)
[2019-11-22 06:49] LABS: ALBUMIN 2.9 g/dL (3.4-5.0); CALCIUM 8.2 mg/dL (8.5-10.1); CREATININE 0.8 mg/dL (0.6-1.3); POTASSIUM 3.3 mmol/L (3.5-5.1); TOTAL BILIRUBIN 1.5 mg/dL (<0.1-1.0); TOTAL PROTEIN 5.7 g/dL (6.4-8.2)
[2019-11-22 06:57] LABS: HEMATOCRIT 19.9 % (42.0-52.0)
[2019-11-22 06:58] LABS: PLATELET COUNT* 20 thou/uL (150-400)
--- NOTE | 2019-11-22 08:05 | NUR ---
ASSUMED CARE OF PATIENT THIS MORNING FROM NIGHT NURSE. PT IS DOING BETTER TODAY. HE IS FEELING BETTER AND WAS EDUCATED ON POC, TESTS AND PROCEDURES. HE WAS ALSO EDUCATED ON FALL SAFETY AND USING THE CALL LIGHT FOR ASSISTANCE. WILL CONTINUE TO MONITOR.
[2019-11-22 18:17] LABS: CALCIUM 8.1 mg/dL (8.5-10.1); CREATININE 0.9 mg/dL (0.6-1.3); POTASSIUM 3.8 mmol/L (3.5-5.1); TOTAL BILIRUBIN 1.5 mg/dL (<0.1-1.0)
[2019-11-22 21:06] LABS: IgA 164 mg/dL (61-437); IgG 697 mg/dL (603-1613); IgM 113 mg/dL (15-143)
[2019-11-23 04:23] VITALS: BP 125/62
--- NOTE | 2019-11-23 05:36 | NUR ---
PATIENT PROGRESSING TOWARDS GOALS: PAIN AND RESTLESSNESS MANAGED WITH MEDICATION PER MAR AND PROMOTION OF QUIET/DARK ENVIRONMENT. PATIENT'S REMAINS AT BEDSIDE FOR COMFORT. CALL LIGHT WITHIN REACH
[2019-11-23 06:41] LABS: ALBUMIN 2.9 g/dL (3.4-5.0); CALCIUM 8.3 mg/dL (8.5-10.1); CREATININE 0.9 mg/dL (0.6-1.3); POTASSIUM 3.5 mmol/L (3.5-5.1); TOTAL PROTEIN 5.6 g/dL (6.4-8.2)
--- NOTE | 2019-11-23 08:05 | NUR ---
ASSUMED CARE OF PATIENT THIS MORNING FROM NIGHT NURSE. PT IS DOING BETTER TODAY, BUT IS STILL WEAK. FAMILY IS AT BEDSIDE. HE WAS EDUCATED ON POC AND DISEASE PROCESS. BED IN LOWEST POSITION AND CALL LIGHT IN REACH. WILL CONTINUE TO MONITOR.
[2019-11-23 09:34] LABS: MCH 32.1 pg (26.0-34.0); MCV 88.9 fL (80.0-100.0); MPV 8.6 fl. (7.2-11.1); NUCLEATED RBCS 3 /100WBC; RBC 2.02 mil/uL (4.50-6.00); RDW-CV 15.1 % (10.5-14.5); WBC 9.8 thou/uL (4.0-11.0)
[2019-11-23 09:38] LABS: HEMATOCRIT 17.9 % (42.0-52.0); HEMOGLOBIN 6.5 gm/dL (14.0-18.0); PLATELET COUNT* 19 thou/uL (150-400)
[2019-11-23 10:05] LABS: ABSOLUTE MONOCYTES 0.3 thou/uL (0.0-1.2); ABSOLUTE NEUTROPHILS 7.5 thou/uL (1.6-8.1); ANISOCYTOSIS 1+; HYPOCHROMASIA 1+; PLATELET ESTIMATE DECREASED; POIKILOCYTOSIS 1+; POLYCHROMASIA Occasional
--- NOTE | 2019-11-23 11:29 | NUR ---
SW continuing to follow through with assisting with safe dc planning; pt no longer needing transfer and to receive IV IG today. SW called pt to follow up and left a detailed message requesting call back to discuss when pt is ready to dc, may need SNF for strengthening vs home with HH. Pt family was hopeful to be able to provide enough care at home as they were not in agreement with SNF as a dc plan. SW to continue to follow to assist with dc planning in preparation for whenever pt is medically ready to dc.
[2019-11-23 12:16] VITALS: BP 121/55
[2019-11-23 13:07] LABS: KAPPA FREE LIGHT CHAINS 11.2 mg/L (3.3-19.4); LAMBDA FREE LIGHT CHAINS 11.7 mg/L (5.7-26.3)
[2019-11-23 16:06] VITALS: BP 124/64
[2019-11-23 19:40] VITALS: BP 128/74
[2019-11-24] VITALS (7 sets, daily range): BP systolic 121–163; BP diastolic 44–88
--- NOTE | 2019-11-24 05:05 | NUR ---
PATIENT PROGRESSING TOWARDS GOALS: PATIENT'S PAIN AND ANXIETY MANAGED WITH MEDICATION PER MAR. ALTHOUGH PATIENT DID NOT SLEEP VERY MUCH OVERNIGHT, HE WAS ABLE TO REST COMFORTABLY. PATIENT'S IV IG COMPLETED, LABS PENDING. REMAINS AT BEDSIDE FOR COMFORT. CALL LIGHT WITHIN REACH
[2019-11-24 05:56] LABS: ABSOLUTE LYMPHOCYTES 1.8 thou/uL (0.8-5.3); EOSINOPHILS 0.2 %
[2019-11-24 05:58] LABS: ABSOLUTE MONOCYTES 0.6 thou/uL (0.0-1.2); ABSOLUTE NEUTROPHILS 7.9 thou/uL (1.6-8.1); BASOPHILS 0.3 %; LYMPHOCYTES 17.2 %; MCH 36.8 pg (26.0-34.0); MCHC 36.9 g/dL (28.0-37.0); MONOCYTES 5.6 %; MPV 8.2 fl. (7.2-11.1); NUCLEATED RBCS 6 /100WBC; POLYS 76.7 %; RBC 1.39 mil/uL (4.50-6.00); RDW-CV 15.4 % (10.5-14.5); WBC 10.3 thou/uL (4.0-11.0)
[2019-11-24 06:09] LABS: ALBUMIN 2.5 g/dL (3.4-5.0); CALCIUM 7.6 mg/dL (8.5-10.1); CREATININE 0.8 mg/dL (0.6-1.3); POTASSIUM 3.8 mmol/L (3.5-5.1); TOTAL BILIRUBIN 0.8 mg/dL (<0.1-1.0); TOTAL PROTEIN 7.2 g/dL (6.4-8.2)
[2019-11-24 06:12] LABS: ALBUMIN 2.5 g/dL (3.4-5.0); CALCIUM 7.7 mg/dL (8.5-10.1); CREATININE 0.8 mg/dL (0.6-1.3); POTASSIUM 3.8 mmol/L (3.5-5.1); TOTAL BILIRUBIN 0.8 mg/dL (<0.1-1.0); TOTAL PROTEIN 7.2 g/dL (6.4-8.2)
[2019-11-24 06:42] LABS: MCV 99.7 fL (80.0-100.0)
[2019-11-24 06:43] LABS: HEMATOCRIT 13.9 % (42.0-52.0); HEMOGLOBIN 5.1 gm/dL (14.0-18.0)
[2019-11-24 06:44] LABS: PLATELET COUNT* 18 thou/uL (150-400)
--- NOTE | 2019-11-24 08:10 | NUR ---
ASSUMED CARE OF PATIENT THIS MORNING FROM NIGHT NURSE. PT IS DOING BETTER TODAY WITH MILD CO OF PAIN WELL CONTROLLED WITH PO PAIN MEDICATIONS. PT WAS EDUCATED ON POC AND DISEASE PROCESS. FALL SAFETY EDUCATION GIVEN, BED IN LOWEST POSITION AND CALL LIGHT IS IN REACH.
[2019-11-24 11:07] LABS: GLOBULIN TOTAL 2.3 g/dL (2.2-3.9); M-SPIKE Not Observed g/dL (Not Observed)
[2019-11-24 18:17] LABS: HEMOGLOBIN 7.2 gm/dL (14.0-18.0); MCHC 36.3 g/dL (28.0-37.0); MCV 91.1 fL (80.0-100.0); MPV 8.4 fl. (7.2-11.1); RBC 2.18 mil/uL (4.50-6.00); RDW-CV 18.2 % (10.5-14.5); WBC 14.1 thou/uL (4.0-11.0)
[2019-11-24 18:21] LABS: HEMATOCRIT 19.9 % (42.0-52.0)
[2019-11-25 00:30] VITALS: BP 156/79
[2019-11-25 04:26] VITALS: BP 146/84
[2019-11-25 04:50] LABS: EOSINOPHILS 0.2 %
[2019-11-25 04:52] LABS: ABSOLUTE BASOPHILS 0.1 thou/uL (0.0-0.2); ABSOLUTE LYMPHOCYTES 2.7 thou/uL (0.8-5.3); ABSOLUTE MONOCYTES 0.7 thou/uL (0.0-1.2); ABSOLUTE NEUTROPHILS 10.3 thou/uL (1.6-8.1); BASOPHILS 0.4 %; LYMPHOCYTES 19.8 %; MCH 33.4 pg (26.0-34.0); MCHC 35.8 g/dL (28.0-37.0); MCV 93.4 fL (80.0-100.0); MONOCYTES 4.8 %; MPV 9.7 fl. (7.2-11.1); NUCLEATED RBCS 11 /100WBC; POLYS 74.8 %; RDW-CV 18.6 % (10.5-14.5); WBC 13.8 thou/uL (4.0-11.0)
[2019-11-25 05:03] LABS: ALBUMIN 2.5 g/dL (3.4-5.0); CALCIUM 7.7 mg/dL (8.5-10.1); CREATININE 0.8 mg/dL (0.6-1.3); POTASSIUM 4.1 mmol/L (3.5-5.1); TOTAL PROTEIN 7.8 g/dL (6.4-8.2)
[2019-11-25 05:05] LABS: HEMOGLOBIN 6.7 gm/dL (14.0-18.0)
[2019-11-25 05:06] LABS: HEMATOCRIT 18.7 % (42.0-52.0); PLATELET COUNT* 13 thou/uL (150-400)
[2019-11-25 08:00] VITALS: BP 146/72
--- NOTE | 2019-11-25 14:54 | NUR ---
DISCUSSION WITH DR ECHEVERRIA OF PATHOLOGY REGARDING LAB DRAW ACCESS FROM LARGE BORE RIGHT IJ CENTRAL VENOUS CATHETER. DR CORTES CONTACTED AND AGREED WITH DR ECHEVERRIA THAT TRAINED NURSING STAFF COULD ACCESS THIS CATHETER FOR BLOOD DRAWS PER HEMODIALYSIS CATHETER ACCESS POLICY. ORDER ENTERED IN THE FROM VERBAL PERMISSION GIVEN. SPOKE WITH DISTRIBUTING CLERK AND GABBI DIRECTOR OF CORPORATE COMMUNICATIONS OF CRITICAL CARE ABOUT THE NEED FOR TRAINING AND COMPETENCY OF STAFF NURSING TO ACCESS THIS LINE PER POLICY. WILL FOLLOW UP WITH PROGRESS, FURTHER ASSISTANCE TO GABBI OFFERED.
[2019-11-25 16:47] VITALS: BP 116/55
--- NOTE | 2019-11-25 18:47 | NUR ---
PT IS ALERT AND ORIENTED X 2 AT BEDSIDE BM NOTED WITH BLOOD IN IT DOCTOR AWARE BONE MARROW BIOPSY TAKEN AND SOME DISCOMFORT NOTED LAC CONT FINISHING IMMUNOGLOB IV AFTER DC'D CALL LIGHT IN REACH
[2019-11-25 20:00] VITALS: BP 129/67
[2019-11-26] VITALS: BP 160/95
[2019-11-26 04:00] VITALS: BP 138/60
[2019-11-26 08:00] VITALS: BP 120/69
--- NOTE | 2019-11-26 08:39 | NUR ---
PT ARRIVED TO UNIT AROUND 2109. PT ORIENTED TO SELF AND SOME QUESTIONS. CALLED PT'S NIECE/CAREGIVER FOR MORE DETAILED INFORMATION. SHE REPORTED PT HAD REVASCULARZATION SURGERY APPROX November PRIOR TO THIS CELLULITIS OF THE RIGHT LEG. SHE ALSO REPORTED PT IS NORMALLY A+0 X4 "BUT SEEMS CONFUSED THE PAST 2 DAYS." 16 PICS TAKEN OF PATIENT'S SKIN. RLE CELLULITIS MARKED WITH MARKER AND DOES NOT TO APPEAR TO HAVE EXPANDED BEYOND MARKED BOUNDARIES THIS AM. OTHER PICS WERE TAKEN OF MULTIPLE OPEN SORES THAT HAD BANDAIDS. PT REPORT THAT SHE HAS BEEN ITCHY AND SCRATCHY. PT HAS LINEAR RASH ON EXTREMITIES, NECK, TRUNK, AND IN BETWEEN TOES CONSISTENT WITH SCABIES. PT PLACED IN CONTACT ISOLATION UNTIL RASH CAN BE EVALUATED BY DR. RASH WAS NOT MENTIONED BY FAMILY MEMBER. ALSO NOTED SEVERE REDNESS/EXORIATION AROUND TYSON AREA. (PT'S FAMILY REPORTED HER TO BE INCONTINENT AND WEARS BRIEFS @ HOME). INSERTED ALLAN FOR COMFORT, RETENTION, AND I+O'S FOR SEPSIS. OBTAINED ADDITIONAL SEPSIS ORDERS WHEN CALLED DR FOR ADMISSION ORDERS. PT WAS ABLE TO REST AFTER RECEIVING IV FENTANYL FOR PAIN. HOURLY ROUNDING FOR SAFETY.
--- NOTE | 2019-11-26 11:54 | NUR ---
Pt remains with need for hospitalization, alternating IV IG and plasmapheresis. Plan remains for when pt is ready to dc, home with and support and HH services. SW to continue to follow to assist with safe dc planning.
[2019-11-26 12:23] VITALS: BP 131/72
[2019-11-26 12:56] LABS: HEMATOCRIT 21.3 % (42.0-52.0); HEMOGLOBIN 7.6 gm/dL (14.0-18.0); MCH 32.9 pg (26.0-34.0); MCHC 35.9 g/dL (28.0-37.0); MCV 91.8 fL (80.0-100.0); MPV 8.5 fl. (7.2-11.1); NUCLEATED RBCS 81 /100WBC; RBC 2.32 mil/uL (4.50-6.00); RDW-CV 18.8 % (10.5-14.5); WBC 9.1 thou/uL (4.0-11.0)
[2019-11-26 12:59] LABS: PLATELET COUNT* 40 thou/uL (150-400)
[2019-11-26 13:18] LABS: ABSOLUTE LYMPHOCYTES 2.8 thou/uL (0.8-5.3); ABSOLUTE MONOCYTES 0.5 thou/uL (0.0-1.2); ABSOLUTE NEUTROPHILS 5.8 thou/uL (1.6-8.1); HYPOCHROMASIA 1+; MYELOCYTES 3 %; PLATELET ESTIMATE DECREASED; POLYCHROMASIA 1+
[2019-11-26 13:19] LABS: ANISOCYTOSIS 1+; POIKILOCYTOSIS 1+
[2019-11-26 13:23] LABS: ALBUMIN 2.4 g/dL (3.4-5.0); CALCIUM 7.8 mg/dL (8.5-10.1); CREATININE 0.9 mg/dL (0.6-1.3); POTASSIUM 3.4 mmol/L (3.5-5.1); TOTAL BILIRUBIN 1.6 mg/dL (<0.1-1.0); TOTAL PROTEIN 8.6 g/dL (6.4-8.2)
[2019-11-26 16:47] VITALS: BP 140/86; BP 147/71
--- NOTE | 2019-11-26 19:04 | NUR ---
PT. VSS, AOX4, PAIN UNDER CONTROL. PT WITH WHO PROVIDED BEDSIDE CARE. PT REFUSED OT AND PT. CALL RECEIVED FRO MDR. HARPER TO INITIATE TRANSFER TO . HOUSE SUP NOTIFIED AND IS ARRANGING DISCHARGE AFTER SHIFT CHANGE WHEN ROOM IS OPEN. SPOKE TO DR. CORTES AND DISCUSSED PLAN TO TRANSFER. NOTIFIED PT AND OF STATUS. PT IN BED, WATCHING TV, IN NO APPARENT DISTRESS, AT CHANGE OF SHIFT. AT BEDSIDE.
[2019-11-26 20:00] VITALS: BP 138/84
--- NOTE | 2019-11-26 23:54 | NUR ---
PT CARE ASSUMED AT 193. SAT MAINTAINED IN O2. SPOUSE AT BEDSIDE. C/O PAIN, MEDICATION GIVEN PER EMAR. PT TRANSFERRED TO WITH EMT. HEART MONITOR TRANSFERRED TO THE STATION. TRANSFERRED AT 2139.
--- NOTE | 2019-11-27 21:05 | PATH ---
[address] [address] PATHOLOGY RPT PROCEDURE Name: HARRIS DUQUE Room: [address] IN M.R.#: [id number] Admission: 11/12/19 Date of : 38 Discharge: 11/26/19 Report #: [id number] Path Case #: [id number] [facility] Accession Number: [id number] . 01 Material submitted: . PART A: bone - BONE MARROW BIOPSY PART B: bone - BONE MARROW ASPIRATE SLIDES PART C: bone - PERIPHERAL BLOOD SMEARS . 01 Clinical history: . Acute and subacute hepatic failure; N/V; hyponatremia; weakness; anemia 79-year-old man with leukocytosis, anemia and thrombocytopenia. . 02 Diagnosis: Bone marrow aspirate, core biopsy and peripheral blood: - Peripheral blood with mild leukocytosis showing left shifted maturation, severe normocytic anemia and severe thrombocytopenia. - Bone marrow core biopsy showing nonviable tissue. (See comment). (EDYTAW:chong; 11/27/2019) MBR 11/27/2019 2000 Local . 02 Comment: Overall the bone marrow core biopsy is nonviable. The specimen consists of myxoid degenerative debris. Clinical and radiographic correlation is required. The case is discussed with Dr. Bermudez on 11/26/19 at approximately 5:15 p.m., and with Christelle, nurse practitioner in Hematology, on 11/27/19 at approximately 1:00 p.m. (CLW:chong; 11/27/2019) . 02 Electronically signed: . Natasha Beltrán MD, Pathologist NPI- [id number] . 01 Gross description: . The specimen is received in formalin, labeled "ingris Moeller?". Received are several minute fragments of pale hill possible tissue measuring 0.3 x 0.3 x 0.1 cm in aggregate dimensions. Bone is not grossly identified. The specimen is filtered and entirely submitted in cassette A1. (CAA; 11/25/2019) QAC/QAC 11/25/2019 [facility] Local . 02 Microscopic: . CBC Data (11/25/19): WBC 14,000 /uL, RBC 2.04, hemoglobin 6.7 g/dL, hematocrit 19.0%, MCV 93.3 fL, MCH 32.8 pg, MCHC 35.1 g/dL, RDW 18.3%, and platelet count 17,000 /uL. White blood cell differential: Segs 41%, bands 22%, lymphs 28%, monos 9%, and 25 NRBCs per 100 [place] [address] PATHOLOGY RPT PROCEDURE Name: HARRIS DUQUE Room: [address] IN M.R.#: [id number] Admission: 11/12/19 Date of : 38 Discharge: 11/26/19 Report #: [id number] Path Case #: [id number] Peripheral Blood Smear: Cytomorphological examination of the Ma's stained peripheral blood smear partially confirms the provided data. Red blood cells show severe normocytic anemia with anisopoikilocytosis. Rare red blood cell fragments/schistocytes are noted on scanning. White blood cells are mildly increased in number. They are predominantly segmented neutrophils with left shifted maturation. Myelocytes and metamyelocytes are noted on scanning. No significant dyspoiesis is seen. No blasts or Ellie rods are identified on scanning. Lymphocytes are predominantly small, round, and mature appearing with condensed chromatin and scant cytoplasm with admixed large granular lymphocytes and reactive appearing lymphocytes. Platelets are markedly decreased in number and mainly normal in morphology with rare larger platelets noted. . Aspirate Smears: Cytomorphological examination of the Ma's stained aspirate smears shows spicules present. The cellular spicules are markedly degenerated with myxoid degenerative stroma. Background trilineage hematopoiesis is markedly reduced to absent. Megakaryocytes are not easily identified. A rare small possible hypolobated megakaryocyte is noted. No viable spicules are present for evaluation. Iron stain of the aspirate smear shows 0/4+ iron positivity. . Core Biopsy: The decalcified bone marrow core biopsy specimen shows necrotic mucoid debris. No viable cells are present for evaluation. . Properly controlled special stains are performed. . Block A1: Iron - 0/4+ iron positivity; Reticulin - negative. . (WISAM:chong; 11/27/2019) . 02 Pathologist provided ICD-10: D72.829, D64.9, D69.6 . 02 CPT . 738623, 107056, 586998, 305296, 090083, 130385, [id number] Specimen Comment: A courtesy copy of this report has been sent to [phone] Specimen Comment: [phone] Specimen Comment: Report sent to / DR TOVAR Performed at: 01 [facility] [address] [id number] MD John Padgett MD Phone: [phone] Performed at: 02 [place] [address] PATHOLOGY RPT PROCEDURE Name: HARRIS DUQUE Room: [address]#: [id number] Admission: 11/12/19 Date of : 38 Discharge: 11/26/19 Report #: [id number] Path Case #: [id number] [facility] [address] [id number] MD Issa Mayer MD Phone: [phone]
--- NOTE | 2019-11-29 12:59 | IN ---
[address] [address] INTERIM NOTE Name: HARRIS DUQUE Room: [address] IN M.R.#: [id number] Admission: 11/12/19 Attend Phys: Beni Disla MD Discharge: 11/26/19 Date of : 38 Report #: [id number] THIS REPORT FOR: //name// cc: Ruel Mckenna MD, Justin MD ~ CC: Elizabeth Sherman DATE OF SERVICE: 11/19/2019 SUBJECTIVE: The patient is feeling much better. Mental status is better. He does not have complaints of severe back pain. PHYSICAL EXAMINATION: VITAL SIGNS: Blood pressure 138/73, heart rate is 87, temperature 97.9, respirations 18. HEENT: There is no icterus. MENTAL STATUS: Alert, oriented. LUNGS: Clear. ABDOMEN: Soft. EXTREMITIES: Lower extremities, no edema. LABORATORY DATA: White count 12.7, hemoglobin 9.5, platelets 31, total bilirubin 1.2. LDH 971. [id number] test 46%. ASSESSMENT AND PLAN: 1. Thrombocytopenia of unclear etiology. [id number] test shows no severe deficiency, although still mild deficiency. At this point, I am planning to hold plasmapheresis. Continue steroids. We will continue to monitor his platelets, LDH and total bilirubin. If he continues to have signs of hemolysis, we will restart plasmapheresis. Atypical thrombotic thrombocytopenic purpura is not excluded. 2. Back pain, improved. 3. Elevated alkaline phosphatase. The patient has a history of Paget's disease. Most likely elevated alkaline phosphatase is secondary to Paget's disease. We will continue to monitor. <ELECTRONICALLY SIGNED> By: Jake Denise MD 11/29/19 1259 1234 [id number] Deinse MD /nt
--- NOTE | 2019-11-29 13:00 | IN ---
[address] [address] INTERIM NOTE Name: HARRIS DUQUE Room: [address] IN .R.#: [id number] Admission: 11/12/19 Attend Phys: Beni Disla MD Discharge: 11/26/19 Date of : 38 Report #: [id number] THIS REPORT FOR: //name// cc: Ruel Mckenna MD, Justin MD ~ CC: Elizabeth Sherman DATE OF SERVICE: 11/20/2019 SUBJECTIVE: The patient seems more confused today. He does not have complaints of abdominal pain. OBJECTIVE: VITALS: Afebrile. HEENT: Sclerae icteric. SKIN: Jaundiced. ABDOMEN: Soft. No tenderness, no rebound. HEART: Normal S1, S2. LUNGS: Clear. SKIN: Exam does not reveal any bruises. LABORATORY DATA: Platelets are 18, total bilirubin 10.1. LDH has not been drawn. Hemoglobin 8.5. ASSESSMENT AND PLAN: Thrombocytopenia. The patient's platelets declined again of varices. I plan to check stat LDH and yesterday LDH was already rising. I am planning to restart plasmapheresis. Thrombocytopenia could be secondary from ____ TTP. The patient clearly has hemolysis, but not quite clear etiology. He is not responding to steroids. The patient's family is requesting transfer to . I agreed. We will initiate transfer. Hyperbilirubinemia with anemia. The patient has elevated alkaline phosphatase as well. Underlying elevation of the alkaline phosphatase was present before, most likely secondary to Paget disease, although such a dramatic increase of bilirubin most likely does not reflect hemolysis. I recommend to fractionate bilirubin to make sure he does not have hyperbilirubinemia. I discussed this case with Dr. Disla, Dr. Disla is ordering abdominal ultrasound. I will recommend to consider GI consult. Time spent on this visit was more than 25 minutes. <ELECTRONICALLY SIGNED> By: Jake Denise MD 11/29/19 1300 181 31Jake Denise MD /nt
== END 2019-11-26 21:40 | disposition home health service (06) | DRG 808 ==
LOC: M.ERS 16:40 → M.TBA-ER 18:55 → M.2W 18:55
PROVIDERS: Family Medicine; Internal Medicine; Internal Medicine Gastroenterology; Internal Medicine Hematology & Oncology; ADMIT Internal Medicine; ATTEND Internal Medicine
DX: D59.2 Drug-induced nonautoimmune hemolytic anemia (principal); M31.1 Thrombotic microangiopathy; G93.41 Metabolic encephalopathy; N17.0 Acute kidney failure with tubular necrosis; K72.00 Acute and subacute hepatic failure without coma; S22.9XXA Fracture of bony thorax, part unspecified, initial encounter for closed fracture; B17.9 Acute viral hepatitis, unspecified; E87.1 Hypo-osmolality and hyponatremia; E44.1 Mild protein-calorie malnutrition; K92.2 Gastrointestinal hemorrhage, unspecified; D62 Acute posthemorrhagic anemia; D58.9 Hereditary hemolytic anemia, unspecified; T39.395A Adverse effect of other nonsteroidal anti-inflammatory drugs [NSAID], initial encounter; K62.89 Other specified diseases of anus and rectum; N40.0 Benign prostatic hyperplasia without lower urinary tract symptoms; E78.5 Hyperlipidemia, unspecified; Z20.828 Contact with and (suspected) exposure to other viral communicable diseases; K52.9 Noninfective gastroenteritis and colitis, unspecified; X58.XXXA Exposure to other specified factors, initial encounter; K21.0 Gastro-esophageal reflux disease with esophagitis; Z66 Do not resuscitate; Z88.5 Allergy status to narcotic agent; Z80.0 Family history of malignant neoplasm of digestive organs; Z80.41 Family history of malignant neoplasm of ovary; Z23 Encounter for immunization; Z68.25 Body mass index [BMI] 25.0-25.9, adult